=== PATIENT | male | born 1990 | race Caucasian/White ===

== ENCOUNTER 2016-05-22 17:37 | Inpatient (IN) | payer MEDICAID ==
[~2016-05-22] VITALS: Ht 170.2 cm; Wt 74.8 kg
[2016-05-22 20:21] LABS: microscopic required? YES; urine erythrocyte NEGATIVE (NEGATIVE)
[2016-05-22 20:24] LABS: BASOPHIL % 1.1 % (0-2); PLATELET COUNT 297 x10^3mcL (130-400); RED CELL DISTRIBUTION WIDTH 13.9 % (11.5-14.5)
[2016-05-22 20:42] LABS: CALCIUM 9.2 mg/dL (8.5-10.1); CARBON DIOXIDE 30.9 mmol/L (21-32); CHLORIDE SERUM 99 mmol/L (98-107); CREATININE SERUM 1.1 mg/dL (0.7-1.3); GFR1 > 60 mL/min; GLUCOSE SERUM 110 mg/dL (74-106); POTASSIUM SERUM 3.6 mmol/L (3.5-5.1); SODIUM SERUM 137 mmol/L (136-145)
[2016-05-22 20:46] LABS: ALBUMIN 3.6 g/dL (3.4-5.0); ALKALINE PHOSPHATASE 98 U/L (46-116); ALT/SGPT 29 U/L (16-63); AMYLASE 57 U/L (25-115); AST/SGOT 21 U/L (15-37); LIPASE 168 IU/L (73-393)
[2016-05-22 20:50] LABS: TOTAL PROTEIN, SERUM 8.4 g/dL (6.4-8.2)
[2016-05-23 01:13] LABS: CHOLESTEROL/HDL RATIO 2.7
[2016-05-23 01:21] LABS: FREE T4 1.11 ng/dL (0.76-1.46); FREE THYROXINE INDEX 2.1 ug/dL (1.4-4.5); T4(THYROXINE) 6.7 ug/dL (4.7-13.3)
[2016-05-23 02:17] LABS: T3 TOTAL 1.12 ng/mL
[2016-05-23 05:08] LABS: BASOPHIL % 0.3 % (0-2); PLATELET COUNT 272 x10^3mcL (130-400); RED CELL DISTRIBUTION WIDTH 13.9 % (11.5-14.5)
[2016-05-23 05:13] LABS: CALCIUM 8.9 mg/dL (8.5-10.1); CARBON DIOXIDE 30.4 mmol/L (21-32); CHLORIDE SERUM 103 mmol/L (98-107); GFR1 > 60 mL/min; GLUCOSE SERUM 104 mg/dL (74-106); PHOSPHOROUS 3.7 mg/dL (2.5-4.9); POTASSIUM SERUM 3.9 mmol/L (3.5-5.1); SODIUM SERUM 139 mmol/L (136-145)
[2016-05-23 07:56] LABS: AMPHETAMINE QUAL UR NONE DETECTED (NEG <=1000)
[2016-05-23 10:43] VITALS: BP 112/77
[2016-05-23 18:34] VITALS: BP 127/67
[2016-05-23 21:47] VITALS: BP 115/58
[2016-05-24 06:00] VITALS: BP 110/52
[2016-05-24 06:12] LABS: BASOPHIL % 0.4 % (0-2); PLATELET COUNT 331 x10^3mcL (130-400); RED CELL DISTRIBUTION WIDTH 13.8 % (11.5-14.5)
[2016-05-24 06:32] LABS: CALCIUM 9.2 mg/dL (8.5-10.1); CARBON DIOXIDE 28.7 mmol/L (21-32); CHLORIDE SERUM 103 mmol/L (98-107); GFR1 > 60 mL/min; GLUCOSE SERUM 104 mg/dL (74-106); MAGNESIUM 2.1 mg/dL (1.8-2.4); POTASSIUM SERUM 4.4 mmol/L (3.5-5.1); SODIUM SERUM 141 mmol/L (136-145)
[2016-05-24 09:27] VITALS: BP 128/77
[2016-05-24 17:17] VITALS: BP 115/77
[2016-05-24 22:24] VITALS: BP 120/78
[2016-05-25 06:23] LABS: BASOPHIL % 0.6 % (0-2); PLATELET COUNT 332 x10^3mcL (130-400)
[2016-05-25 06:35] LABS: CARBON DIOXIDE 28.2 mmol/L (21-32); CHLORIDE SERUM 103 mmol/L (98-107); GFR1 > 60 mL/min; GLUCOSE SERUM 97 mg/dL (74-106); POTASSIUM SERUM 3.7 mmol/L (3.5-5.1); SODIUM SERUM 141 mmol/L (136-145)
[2016-05-25 10:30] VITALS: BP 123/66
[2016-05-25 15:24] VITALS: BP 122/85
[2016-05-25 20:39] VITALS: BP 122/71
[2016-05-26 05:22] VITALS: BP 109/66
[2016-05-26 06:08] LABS: BASOPHIL % 0.3 % (0-2); PLATELET COUNT 326 x10^3mcL (130-400); RED CELL DISTRIBUTION WIDTH 14.1 % (11.5-14.5)
[2016-05-26 06:16] LABS: CALCIUM 8.6 mg/dL (8.5-10.1); CARBON DIOXIDE 26.2 mmol/L (21-32); CHLORIDE SERUM 106 mmol/L (98-107); CREATININE SERUM 0.9 mg/dL (0.7-1.3); GFR1 > 60 mL/min; GLUCOSE SERUM 91 mg/dL (74-106); POTASSIUM SERUM 4.1 mmol/L (3.5-5.1); SODIUM SERUM 141 mmol/L (136-145)
[2016-05-26 09:31] VITALS: BP 116/64
[2016-05-26 16:59] VITALS: BP 117/62
[2016-05-26 21:32] VITALS: BP 137/78
[2016-05-27 06:02] VITALS: BP 135/78
[2016-05-27 06:10] LABS: BASOPHIL % 0.6 % (0-2); PLATELET COUNT 355 x10^3mcL (130-400); RED CELL DISTRIBUTION WIDTH 13.9 % (11.5-14.5)
[2016-05-27 06:38] LABS: CALCIUM 8.7 mg/dL (8.5-10.1); CARBON DIOXIDE 26.5 mmol/L (21-32); CHLORIDE SERUM 103 mmol/L (98-107); CREATININE SERUM 0.8 mg/dL (0.7-1.3); GFR1 > 60 mL/min; GLUCOSE SERUM 87 mg/dL (74-106); SODIUM SERUM 139 mmol/L (136-145)
[2016-05-27 09:43] VITALS: BP 122/73
[2016-05-27] MEDS ORDERED: FLA500 PO (12:38)
[2016-05-27] MEDS ORDERED: LAC PO (12:40)
[2016-05-27] MEDS ORDERED: KEFLEX500 M1 PO (12:42)
[2016-05-27 13:52] VITALS: BP 142/91
[2016-05-27 17:53] VITALS: BP 149/94
[2016-05-27 21:19] VITALS: BP 125/74
[2016-05-28 01:03] VITALS: Ht 170.2 cm; Wt 74.8 kg
[2016-05-28 06:32] VITALS: BP 121/72
[2016-05-28 06:56] LABS: BASOPHIL % 0.3 % (0-2); PLATELET COUNT 365 x10^3mcL (130-400)
[2016-05-28 06:59] LABS: ALBUMIN 2.3 g/dL (3.4-5.0); CALCIUM 8.7 mg/dL (8.5-10.1); CARBON DIOXIDE 28.1 mmol/L (21-32); CHLORIDE SERUM 105 mmol/L (98-107); CREATININE SERUM 0.8 mg/dL (0.7-1.3); GFR1 > 60 mL/min; GLUCOSE SERUM 105 mg/dL (74-106); MAGNESIUM 1.7 mg/dL (1.8-2.4); POTASSIUM SERUM 3.7 mmol/L (3.5-5.1); SODIUM SERUM 140 mmol/L (136-145)
[2016-05-28] MEDS ORDERED: NOR10T PO (09:38)
[2016-05-28] MEDS ORDERED: COL250 PO (09:39)
[2016-05-28 09:40] VITALS: BP 114/70
[2016-05-28] MEDS ORDERED: BICARSIM80 M1 PO (13:06)
[2016-05-28 15:37] VITALS: BP 114/70
== END 2016-05-28 16:45 | disposition home or self-care (01) | DRG 229 ==
LOC: ED 17:37 → MU 05-23 09:57 → DU 05-23 09:57 → MU 05-23 11:57
PROVIDERS: Emergency Medicine; Family Medicine; Surgery; ADMIT Family Medicine
PROC: 0W9G0ZZ Drainage of Peritoneal Cavity, Open Approach (ICD-10-PCS; principal; 2016-05-26 09:00)
DX: K35.3 Acute appendicitis with localized peritonitis (principal); N17.0 Acute kidney failure with tubular necrosis; E43 Unspecified severe protein-calorie malnutrition; D68.9 Coagulation defect, unspecified; D64.9 Anemia, unspecified; E83.42 Hypomagnesemia; Z68.25 Body mass index [BMI] 25.0-25.9, adult
CPT/HCPCS: 32557; 80307; 83880; 84439; C1729; J0295; J0330; J1170; J1644; J1885; J2001; J2250; J2270; J2405; J2704; J2710; J3010; J3490; J7030; J7120; Q0092; Q9966; Q9967

== ENCOUNTER 2016-09-13 00:33 | Emergency (ER) | payer MEDICAID ==
[~2016-09-13 00:33] MED LIST: BICARSIM80 M1 PO; COL250 PO; FLA500 PO; KEFLEX500 M1 PO; LAC PO; NOR10T PO
[2016-09-13 02:45] VITALS: BP 128/75
== END 2016-09-13 02:55 | disposition home or self-care (01) ==
LOC: ED 00:33
DX: S01.81XA Laceration without foreign body of other part of head, initial encounter (principal); J45.909 Unspecified asthma, uncomplicated; X58.XXXA Exposure to other specified factors, initial encounter; Y93.89 Activity, other specified; Y92.89 Other specified places as the place of occurrence of the external cause; Y99.8 Other external cause status
CPT/HCPCS: 90715